=== PATIENT | male | born 1980 ===

== ENCOUNTER 2017-04-12 20:19 | Emergency (ER) | payer SELFPAY ==
[2017-04-12 20:33] VITALS: BP 107/67; PULSE 86; RESP 20; TEMP 99.1; O2SAT 96
--- NOTE | 2017-04-12 22:06 | C.PDOC ---
History Of Present Illness 36 y/o male c/o one year hx of 'bumps' in bilateral groin area that are becoming more painful. pt denies penile discharge,no dysuria, urgency or frequency, no lesions to skin in genital area. pt reports protected sex with women only. no fever or chills. no abdominal pain, pt concerned about sti. Time Seen by Provider: 04/12/17 21:41 Chief Complaint (Nursing): Male Genitourinary History Per: Patient History/Exam Limitations: no limitations Onset/Duration Of Symptoms: Days (one year) Current Symptoms Are (Timing): Still Present Severity: Mild Quality Of Discomfort: Unable To Describe Associated Symptoms: denies: Fever, Chills, Nausea, Vomiting, Loss Of Appetite, Back Pain, Urinary Symptoms Recent travel outside of the [place]: No Past Medical History Reviewed: Historical Data, Nursing Documentation, Vital Signs Vital Signs: Last Vital Signs Temp 99.1 F 04/12/17 20:31 Pulse 86 04/12/17 20:31 Resp 20 04/12/17 20:31 BP 107/67 04/12/17 20:31 Pulse Ox 96 04/12/17 22:06 - Medical History PMH: No Chronic Diseases Surgical History: No Surg Hx Family History: States: Unknown Family Hx - Social History Hx Tobacco Use: No Hx Alcohol Use: Yes Hx Substance Use: Yes - Immunization History Hx Tetanus Toxoid Vaccination: Yes Hx Influenza Vaccination: No Hx Pneumococcal Vaccination: No Review Of Systems Constitutional: Negative for: Fever, Chills Gastrointestinal: Negative for: Nausea, Abdominal Pain Genitourinary: Negative for: Dysuria, Frequency, Incontinence, Penile Discharge , Scrotal Pain, Rash Skin: Negative for: Rash, Lesions Physical Exam - Physical Exam Appears: Non-toxic, No Acute Distress Skin: Normal Color, Warm, Dry Head: Atraumatic, Normacephalic Gastrointestinal/Abdominal: Bowel Sounds, Soft, No Tenderness Rectal: Deferred Male Genital: Normal Inspection, No Testicular Tenderness, No Testicular Swelling, Inguinal Tenderness (bilateral small tender inguinal nodes. no erythema or warmth noted. ), No Scrotal Swelling, Circumcised, Other (no rash or lesions noted) Extremity: No Tenderness, No Pedal Edema Neurological/Psych: Oriented x3, Normal Speech, Normal Cognition ED Course And Treatment O2 Sat by Pulse Oximetry: 96 Medical Decision Making Medical Decision Making: pt with small bilateral tender inguinal nodes for one year. no genital rash. no teste tenderness. no penile discharge, ua neg, slightly concentrated. will d/c with outpatient f/u Disposition Counseled Patient/Family Regarding: Diagnosis, Need For Followup - Disposition Referrals: [facility] [Outside] [facility] [Outside] Disposition: HOME/ ROUTINE Disposition Time: 22:54 Condition: STABLE Additional Instructions: Follow up in medical clinic- call for appointments, Drink more water. Return to ER for any worsening symptoms. Instructions: Lymphadenopathy (ED) Forms: General Discharge Instructions - Clinical Impression Clinical Impression: Inguinal adenopathy
[2017-04-12 22:30] LABS: RBC URINE 2 /hpf (0-3); URINE BILIRUBIN NEGATIVE (NEGATIVE); URINE BLOOD NEGATIVE (NEGATIVE); URINE COLOR Yellow (YELLOW); URINE GLUCOSE (UA) NORMAL (Normal); URINE KETONE TRACE mg/dL (NEGATIVE); URINE LEUKOCYTE ESTERASE NEG Leu/uL (Negative); URINE PROTEIN NEGATIVE (NEGATIVE); URINE UROBILINOGEN NORMAL mg/dL (0.2-1.0); WBC URINE < 1 /hpf (0-5)
== END 2017-04-12 23:14 | disposition home or self-care (01) ==
LOC: C.ER 20:19
DX: R59.0 Localized enlarged lymph nodes (principal)